=== PATIENT | male | born 2005 | race Hispanic/Latino ===

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

== ENCOUNTER 2025-05-28 19:46 | Emergency (ER) | payer BC ==
[2025-05-28] MEDS ORDERED: FENTANYL CITR 100 MCG/2 ML ONE (20:33)
[2025-05-28] MEDS ORDERED: ONDANSETRON 4 MG/2 ML VIAL ONE (20:34)
[2025-05-28] MEDS ORDERED: LIDOCAINE 2% W/EPI 1:200,000 MPF 20 ML VIAL IM ONE (20:35)
[2025-05-28] MEDS ORDERED: CLINDAMYCIN 600MG/D5W 50 ML IV ONE (20:35)
[2025-05-28 20:41] LABS: Absolute Lymphocytes (CBC) 2.5 K/uL (0.7-4.9); Hematocrit 40.7 % (39.6-49.0); Hemoglobin 14.3 g/dL (13.6-17.9); MCH 31.5 pg (27.0-35.0); MCHC 35.2 g/dL (32.0-36.0); MCV 89.4 fL (80-100); MPV 7.5 fL (7.6-11.3); Nucleated RBC Absolute Count 0.0 (0-0); Nucleated Red Blood Cells % 0.0 % (0-0); RBC Red Blood Cell Count 4.55 M/uL (4.33-5.43); White Blood Count 10.50 thou/uL (4.3-10.9)
[2025-05-28 20:53] LABS: Anion Gap 8.2 mEq/L (5.0-15.0); BUN Blood Urea Nitrogen 20.0 mg/dL (7-18); Glucose Level 96.0 mg/dL (74-106); Potassium 4.2 mEq/L (3.5-5.1)
--- NOTE | 2025-05-28 21:59 | EDPHYS ---
Physician Documentation [facility] Name: Emery Foreman Age: 19 yrs Sex: Male : 2005 Arrival Date: 05/28/2025 Time: 19:46 Bed 16 Private MD: ED Physician Nicho Martines HPI: 05/28 20:25 This 19 yrs old Male presents to ER via Ambulatory with complaints of Abscess. cp 20:25 The patient presents with an abscess of the right buttock. Description: fluctuant, cp raised, swollen. 20:25 Onset: The symptoms/episode began/occurred 2 week(s) ago. cp 20:25 Associated signs and symptoms: Pertinent negatives: discharge, drainage, fever. cp Severity of symptoms: in the emergency department the symptoms are unchanged, despite home interventions. Historical: - Allergies: 20:06 No Known Allergies; bm8 - Home Meds: 20:06 None [Active]; bm8 - PMHx: 20:06 None; bm8 - PSHx: 20:06 None; bm8 - Immunization history:: Adult Immunizations up to date. - Infectious Disease History:: Denies. - Social history:: Smoking status: Patient denies any tobacco usage or history of. ROS: 20:30 Constitutional: Negative for body aches, chills, fever, poor PO intake, cp 20:30 Abdomen/GI: Negative for abdominal pain, vomiting, diarrhea, constipation, cp 20:30 Skin: Positive for abscess, of the right buttock, 20:30 All other systems are negative, Exam: 20:30 Head/Face: Normocephalic, atraumatic. cp 20:30 Constitutional: The patient appears in no acute distress, alert, awake, non-toxic, well developed, well nourished, uncomfortable, 20:30 Cardiovascular: Rate: normal, 20:30 Respiratory: the patient does not display signs of respiratory distress, Respirations: normal, no use of accessory muscles, no retractions, labored breathing, is not present, Breath sounds: are clear throughout, no decreased breath sounds, 20:30 Abdomen/GI: Inspection: abdomen appears normal, Palpation: abdomen is soft and non-tender, in all quadrants, 20:30 Skin: abscess, of the right buttock, approximate size golf ball, tender and fluctuant, mild surrounding erythema, Vital Signs: 20:04 BP 120 / 80; Pulse 81; Resp 17; Temp 98.7; Pulse Ox 100% ; Weight 58.97 kg; Height 5 bm8 ft. 9 in. ; Pain 5/10; 20:23 BP 121 / 70; Pulse 87; Resp 16; Pulse Ox 99% ; kt5 21:24 BP 121 / 70; Pulse 84; Resp 18; Pulse Ox 98% ; kt5 22:54 BP 118 / 68; Pulse 82; Resp 18; Temp 98.3; Pulse Ox 99% ; Pain 0/10; kt5 20:04 Body Mass Index 19.20 (58.97 kg, 175.26 cm) bm8 20:04 Pain Scale: Adult bm8 22:54 Pain Scale: Adult kt5 Procedures: 21:55 I \T\ D: Incision and drainage was performed for an abscess of the right buttock Prepped cp with Betadine, Anesthetized with ml's 2% Lidocaine with epinephrine. 6 ml's 2% Lidocaine with epinephrine. Incised with #11 blade. Drained moderate amount purulent fluid. bloody fluid. Packed with iodoform gauze, Dressing: sterile 4x4 gauze, the patient tolerated the procedure well. MDM: 20:05 Medical Screening Exam initiated cp 21:58 Data reviewed: vital signs, nurses notes, lab test result(s), and as a result, I will cp discharge patient. 21:58 Differential diagnosis: abscess, cellulitis, sepsis. I considered the following cp discharge prescriptions or medication management in the emergency department Medications were administered in the Emergency Department. See MAR. Test considered but Not performed: CT: abdomen/pelvis. Counseling: I had a detailed discussion with the patient and/or guardian regarding the historical points, exam findings, and any diagnostic results supporting the discharge/admit diagnosis, lab results, the need for outpatient follow up, a family practitioner, to return to the emergency department if symptoms worsen or persist or if there are any questions or concerns that arise at home. Response to treatment: the patient's symptoms have mildly improved after treatment, and as a result, I will discharge patient. Special discussion: wound care. 05/28 20: Order name: CBC with Diff; Complete Time: 21:30 cp 05/28 20: Order name: BMP; Complete Time: 21:30 cp 05/28 20:21 Order name: I\T\D Setup; Complete Time: 21:03 cp 05/28 20:21 Order name: IV Saline Lock; Complete Time: 20:31 cp 05/28 20:21 Order name: Labs collected and sent; Complete Time: 20:31 cp 05/28 21:50 Order name: Wound dressing; Complete Time: 22:35 cp Administered Medications: 20:41 Drug: Ondansetron IVP 4 mg IVP once; over 2 minutes Route: IVP; Site: right antecubital;kt5 21:02 Follow up: Response: No adverse reaction; Nausea is decreased kt5 20:43 Drug: fentaNYL (PF) IVP 25 mcg IVP once Route: IVP; Site: right antecubital; kt5 21:03 Follow up: Response: No adverse reaction; Pain is decreased kt5 20:45 Drug: Clindamycin IVPB 600 mg IVPB once over 30 mins; (mix in 50 mL) Route: IVPB; kt5 Infused Over: 30 mins; Site: left antecubital; 21:36 Follow up: IV Status: Completed infusion; IV Intake: 50ml kt5 21:36 Follow up: Response: No adverse reaction kt5 22:53 Drug: Trimethoprim-Sulfamethoxazole PO (160 mg-800 mg (DS) 1 tablet PO once Route: PO; kt5 22:58 Follow up: Response: No adverse reaction kt5 22:53 Drug: Hydrocodone-Acetaminophen PO (7.5 mg-325 mg) 1 tabs PO once; RASS on ADMIN: kt5 Combtv4, Very Agttd3, Agttd2, Rstlss1, AlertClm0, Drwsy-1, Lt Sdtn-2, Mod Sdtn-3, Dp Sdtn-4, UnArsble-5 Route: PO; 22:58 Follow up: Response: No adverse reaction kt5 23:00 Drug: Lidocaine Infiltration (2 %) 20 ml 5 ml Infiltration once; with epinephrine kt5 Volume: 5 ml; Route: Infiltration; Disposition: 05/29 02:18 Co-signature as Attending Physician, Nicho Martines DO I reviewed the patient's care tt7 provided by the Advanced Practice Provider and agree with the diagnosis and treatment plan. 22:59 Chart complete. cp Disposition Summary: 05/28/25 21:58 Discharge Ordered Notes: Location: Home cp Problem: new cp Symptoms: have improved cp Condition: Stable cp Diagnosis - Cutaneous abscess of buttock - right cp Followup: cp - With: Emergency Department - When: 2 - 3 days - Reason: Wound Recheck Discharge Instructions: - Discharge Summary Sheet cp - Skin Abscess cp - Incision and Drainage cp - Incision and Drainage, Care After cp Forms: - Medication Reconciliation Form cp - Antibiotic Education cp - Prescription Opioid Use cp - Patient Portal Instructions cp - Leadership Thank You Letter cp Prescriptions: - Clindamycin HCl 300 mg Oral Capsule - take 1 capsule ORAL route every 6 hours for 10 days; 40 capsule; Refills: 0, cp Product Selection Permitted - Ultram 50 mg Oral Tablet - take 1 tablet ORAL route every 6 hours As needed; 12 tablet; Refills: 0, cp Product Selection Permitted - Bactrim DS 800-160 mg Oral Tablet - take 1 tablet ORAL route every 12 hours for 10 days; 20 tablet; Refills: 0, cp Product Selection Permitted Signatures: Dispatcher [employer] EDMS Ash Boo PA-C PA-C cp McDonald, Brad RN RN bm8 Anaid Corado RN RN kt5 Nicho Martines DO DO tt7 Corrections: (The following items were deleted from the chart) 05/28 22:03 21:45 I \T\ D: Incision and drainage was performed for an abscess of the right buttock cp Prepped with Betadine, Anesthetized with ml's 2% Lidocaine with epinephrine. 6 ml's 2% Lidocaine with epinephrine. Incised with #11 blade. Drained moderate amount purulent fluid. bloody fluid. Packed with iodoform gauze, Dressing: sterile 4x4 gauze, the patient tolerated the procedure well, cp
--- NOTE | 2025-05-28 21:59 | ER ---
Nurse's Notes [facility] Name: Emery Foreman Age: 19 yrs Sex: Male : 2005 Arrival Date: 05/28/2025 Time: 19:46 Bed 16 Private MD: Diagnosis: Cutaneous abscess of buttock-right Presentation: 05/28 20:04 Chief complaint: Patient states: I have an abscess on my right butt cheeck that is bm8 getting worse for two weeks. Coronavirus screen: At this time, the client does not indicate any symptoms associated with coronavirus-19. Ebola Screen: Patient negative for fever greater than or equal to 101.5 degrees Fahrenheit, and additional compatible Ebola Virus Disease symptoms Patient denies exposure to infectious person. Patient denies travel to an Ebola-affected area in the 21 days before illness onset. No symptoms or risks identified at this time. Initial Sepsis Screen: Does the patient meet any 2 criteria? No. Patient's initial sepsis screen is negative. Does the patient have a suspected source of infection? No. Patient's initial sepsis screen is negative. Risk Assessment: Do you want to hurt yourself or someone else? Patient reports no desire to harm self or others. Onset of symptoms was May 14, 2025. 20:04 Method Of Arrival: Ambulatory bm8 20:04 Acuity: JESSY 3 bm8 Triage Assessment: 20:06 General: Appears in no apparent distress. comfortable, Behavior is calm, cooperative, bm8 appropriate for age. Pain: Complains of pain in gluteal cleft Pain currently is 5 out of 10 on a pain scale. Derm: Abscess located on gluteal cleft Reports pain that is 5 out of 10 on a pain scale. Historical: - Allergies: 20:06 No Known Allergies; bm8 - Home Meds: 20:06 None [Active]; bm8 - PMHx: 20:06 None; bm8 - PSHx: 20:06 None; bm8 - Immunization history:: Adult Immunizations up to date. - Infectious Disease History:: Denies. - Social history:: Smoking status: Patient denies any tobacco usage or history of. Screenin:23 [facility] ED Fall Risk Assessment (Adult) History of falling in the last 3 months, kt5 including since admission No falls in past 3 months (0 pts) Confusion or Disorientation No (0 pts) Intoxicated or Sedated No (0 pts) Impaired Gait No (0 pts) Mobility Assist Device Used No (0 pt) Altered Elimination No (0 pt) Score/Fall Risk Level 0 - 2 = Low Risk. Abuse screen: Denies threats or abuse. Nutritional screening: No deficits noted. Tuberculosis screening: No symptoms or risk factors identified. Assessment: 20:23 General: Appears in no apparent distress. comfortable, Behavior is calm, cooperative, kt5 appropriate for age. Pain: Complains of pain in right gluteus crystal Pain does not radiate. Pain currently is 0 out of 10 on a pain scale. at worst was 8 out of 10 on a pain scale. Quality of pain is described as sharp, Pain began 2 weeks Is intermittent, Aggravated by increased activity, repositioning, weight bearing. Neuro: No deficits noted. Barton Agitation-Sedation Scale (RASS): 0 - Alert and Calm Level of Consciousness is awake, alert, obeys commands, Oriented to person, place, time, situation, Appropriate for age. Cardiovascular: No deficits noted. Heart tones S1 S2 present Capillary refill < 3 seconds is brisk Clubbing of nail beds is absent JVD is absent Rhythm is regular. Respiratory: No deficits noted. Airway is patent Trachea midline Respiratory effort is even, unlabored, Respiratory pattern is regular, symmetrical, Breath sounds are clear bilaterally. GI: No deficits noted. No signs and/or symptoms were reported involving the gastrointestinal system. : No deficits noted. No signs and/or symptoms were reported regarding the genitourinary system. EENT: No deficits noted. No signs and/or symptoms were reported regarding the EENT system. Derm: Abscess located on right gluteus crystal is half dollar sized, has no drainage, is red, is raised, Reports increased pain that is 8 out of 10 on a pain scale. Musculoskeletal: No deficits noted. No signs and/or symptoms reported regarding the musculoskeletal system. 21:24 Reassessment: Patient appears in no apparent distress at this time. Patient and/or kt5 family updated on plan of care and expected duration. Pain level reassessed. Patient is alert, oriented x 3, equal unlabored respirations, skin warm/dry/pink. Patient states feeling better. Patient states symptoms have improved. 22:54 Reassessment: Patient appears in no apparent distress at this time. Patient and/or kt5 family updated on plan of care and expected duration. Pain level reassessed. Patient is alert, oriented x 3, equal unlabored respirations, skin warm/dry/pink. Patient denies pain at this time. Patient states feeling better. Patient states symptoms have improved. Vital Signs: 20:04 BP 120 / 80; Pulse 81; Resp 17; Temp 98.7; Pulse Ox 100% ; Weight 58.97 kg; Height 5 bm8 ft. 9 in. ; Pain 5/10; 20:23 BP 121 / 70; Pulse 87; Resp 16; Pulse Ox 99% ; kt5 21:24 BP 121 / 70; Pulse 84; Resp 18; Pulse Ox 98% ; kt5 22:54 BP 118 / 68; Pulse 82; Resp 18; Temp 98.3; Pulse Ox 99% ; Pain 0/10; kt5 20:04 Body Mass Index 19.20 (58.97 kg, 175.26 cm) bm8 20:04 Pain Scale: Adult bm8 22:54 Pain Scale: Adult kt5 ED Course: 19:50 Patient arrived in ED. gm2 19:53 Ash Boo PA-C is PHCP. cp 19:53 Nicho Martines DO is Attending Physician. cp 20:05 Triage completed. bm8 20:06 Arm band placed on left wrist. bm8 20:09 Anaid Corado, RN is Primary Nurse. kt5 20:23 Patient has correct armband on for positive identification. Call light in reach. Side kt5 rails up X 1. Adult w/ patient. Client placed on continuous cardiac and pulse oximetry monitoring. NIBP monitoring applied. Door closed. Noise minimized. Warm blanket given. Pillow given. 20:23 Inserted saline lock: 20 gauge in left antecubital area, using aseptic technique. Blood kt5 collected. Flushed with 10 mL NS. 20:30 BMP Sent. kt5 20:31 CBC with Diff Sent. kt5 22:54 Provided Education on: follow up and meds. kt5 22:54 Assist provider with I \T\ D: of an abscess on right right buttocks Set up I\T\D tray. kt 5 Performed by Ash Boo PA-C Dressing with 4X4s, tape Patient tolerated well. 22:56 IV discontinued, intact, bleeding controlled, No redness/swelling at site. Pressure kt5 dressing applied. Administered Medications: 20:41 Drug: Ondansetron IVP 4 mg IVP once; over 2 minutes Route: IVP; Site: right antecubital;kt5 21:02 Follow up: Response: No adverse reaction; Nausea is decreased kt5 20:43 Drug: fentaNYL (PF) IVP 25 mcg IVP once Route: IVP; Site: right antecubital; kt5 21:03 Follow up: Response: No adverse reaction; Pain is decreased kt5 20:45 Drug: Clindamycin IVPB 600 mg IVPB once over 30 mins; (mix in 50 mL) Route: IVPB; kt5 Infused Over: 30 mins; Site: left antecubital; 21:36 Follow up: IV Status: Completed infusion; IV Intake: 50ml kt5 21:36 Follow up: Response: No adverse reaction kt5 22:53 Drug: Trimethoprim-Sulfamethoxazole PO (160 mg-800 mg (DS) 1 tablet PO once Route: PO; kt5 22:58 Follow up: Response: No adverse reaction kt5 22:53 Drug: Hydrocodone-Acetaminophen PO (7.5 mg-325 mg) 1 tabs PO once; RASS on ADMIN: kt5 Combtv4, Very Agttd3, Agttd2, Rstlss1, AlertClm0, Drwsy-1, Lt Sdtn-2, Mod Sdtn-3, Dp Sdtn-4, UnArsble-5 Route: PO; 22:58 Follow up: Response: No adverse reaction kt5 23:00 Drug: Lidocaine Infiltration (2 %) 20 ml 5 ml Infiltration once; with epinephrine kt5 Volume: 5 ml; Route: Infiltration; Medication: 20:23 VIS not applicable for this client. kt5 Intake: 21:36 IV: 50ml; Total: 50ml. kt5 Outcome: 21:58 Discharge ordered by . chela 22:56 Discharged to home ambulatory, with family, kt5 22:56 Condition: improved 22:56 Discharge instructions given to patient, family, Instructed on discharge instructions, follow up and referral plans. Demonstrated understanding of instructions, follow-up care, medications, Prescriptions given X 3, 23:00 Patient left the ED. kt5 Signatures: Ash Boo PA-C PA-C cp Mitchell, Ginger 2 Brandon Astorga RN RN bm8 Anaid Corado RN RN kt5 Corrections: (The following items were deleted from the chart) 23:00 22:56 Patient did not have IV access during this emergency room visit. IV discontinued, kt5 intact, bleeding controlled, No redness/swelling at site. Pressure dressing applied, kt5
[2025-05-28] MEDS ORDERED: SMZ./TMP. 800/160 MG TABLET ONE (22:41)
[2025-05-28] MEDS ORDERED: HYDROCODONE/APAP 7.5/325 MG TAB ONE (22:42)
[2025-05-29 00:24] VITALS: BP 118/68; TEMP 98.3; O2SAT 99
== END 2025-05-28 23:00 | disposition home or self-care (01) ==
LOC: ER 19:46
PROC: 0H98XZZ Drainage of Buttock Skin, External Approach (ICD-10-PCS; principal; 2025-05-28)
DX: L02.31 Cutaneous abscess of buttock (principal)
CPT/HCPCS: 96365; 85025; 80048; 36415; 96375; 99285; 10060; J3010; J2405

== ENCOUNTER 2025-05-31 12:46 | Emergency (ER) | payer BC ==
--- NOTE | 2025-05-31 14:07 | EDPHYS ---
Physician Documentation [facility] Name: Emery Foreman Age: 19 yrs Sex: Male : 2005 Arrival Date: 05/31/2025 Time: 12:46 Bed 12 Private MD: ED Physician Neeraj Samuels HPI: 05/31 16:09 This 19 yrs old Male presents to ER via Ambulatory with complaints of Wound dr5 Check. 16:09 Patient presents to ED for recheck of: abscess. The affected area is on the right dr5 gluteal cleft. Patient is a 19-year-old male with no past medical history coming in for wound check and packing removal of abscess that was drained 2 days ago. Patient denies fever, discharge from wound, or worsening symptoms. Patient also reports taking medication as prescribed.. Historical: - Allergies: 13:05 No Known Allergies; ss - PMHx: 13:05 None; ss - PSHx: 13:05 None; ss - Infectious Disease History:: Denies. - Social history:: Smoking status: Patient denies any tobacco usage or history of. ROS: 16:09 Constitutional: as per hpi dr5 Exam: 16:09 Constitutional: This is a well developed, well nourished patient who is awake, alert, dr5 and in no acute distress. Head/Face: Normocephalic, atraumatic. Eyes: Pupils equal round and reactive to light, extra-ocular motions intact. Lids and lashes normal. Conjunctiva and sclera are non-icteric and not injected. Cornea within normal limits. Periorbital areas with no swelling, redness, or edema. Neck: Trachea midline, no thyromegaly or masses palpated, and no cervical lymphadenopathy. Supple, full range of motion without nuchal rigidity, or vertebral point tenderness. No Meningismus. Chest/axilla: Normal chest wall appearance and motion. Nontender with no deformity. No lesions are appreciated. Cardiovascular: Regular rate and rhythm with a normal S1 and S2. Normal PMI, no JVD. No pulse deficits. Respiratory: Lungs have equal breath sounds bilaterally, clear to auscultation. No rales, rhonchi or wheezes noted. No increased work of breathing, no retractions or nasal flaring. Back: No spinal tenderness. No costovertebral tenderness. Full range of motion. Skin: Warm, dry with normal turgor. Normal color with no rashes, no lesions, and no evidence of cellulitis. Abscess healing well without erythema or tenderness to palpation. MS/ Extremity: Pulses equal, no cyanosis. Neurovascular intact. Full, normal range of motion. Neuro: Awake and alert, GCS 15, oriented to person, place, time, and situation. Cranial nerves II-XII grossly intact. Motor strength 5/5 in all extremities. Sensory grossly intact. Cerebellar exam normal. Normal gait. 16:09 : Rectal exam: AISHA NETTLES . dr5 Vital Signs: 13:04 BP 116 / 64; Pulse 70; Resp 16; Temp 98.3(TE); Pulse Ox 98% ; Weight 58.97 kg; Height 5 ss ft. 9 in. ; Pain 0/10; 13:04 Body Mass Index 19.20 (58.97 kg, 175.26 cm) ss 13:04 Pain Scale: Adult ss Procedures: 16:09 I \T\ D:. I \T\ D: Packed with. Performed Incision and drainage packing removal. Removed dr 5 packing. MDM: 12:49 Medical Screening Exam initiated dr5 16:09 Differential diagnosis: cellulitis, Abscess reformation, sepsis, cellulitis, wound dr5 recheck. Data reviewed: vital signs, nurses notes. Consideration of Admission/Observation Escalation of care including admission/observation considered. Escalation considered but patient's wound was not healing. Historians other than the Patient: Spouse/Significant Other: Significant other. Care significantly affected by the following Social Determinants of Health: Poor access to healthcare and/or lack of insurance, Poor access to transportation, Problems related to employment. Counseling: I had a detailed discussion with the patient and/or guardian regarding the historical points, exam findings, and any diagnostic results supporting the discharge/admit diagnosis, the presence of at least one elevated blood pressure reading (>120/80) during this emergency department visit, the need for outpatient follow up, for definitive care, a family practitioner, to return to the emergency department if symptoms worsen or persist or if there are any questions or concerns that arise at home. Special discussion: I discussed with the patient/guardian in detail that at this point there is no indication for admission to the hospital. It is understood, however, that if the symptoms persist or worsen the patient needs to return immediately for re-evaluation. Based on the history and exam findings, there is no indication for further emergent testing or inpatient evaluation. I discussed with the patient/guardian the need to see the primary care provider for further evaluation of the symptoms. ED course: Iodoform packing was removed from wound. No tenderness to palpation. Erythema has improved. Abscess is healing well. No signs of infection. Recommended continuing antibiotics. Strict ER precautions given all question answered. Administered Medications: No medications were administered Disposition: 17:53 Co-signature as Attending Physician, Neeraj Samuels MD I reviewed the patient's care rn provided by the Advanced Practice Provider and agree with the diagnosis and treatment plan. Disposition Summary: 05/31/25 14:07 Discharge Ordered Notes: Location: Home dr5 Condition: Stable dr5 Diagnosis - Encounter for change or removal of nonsurgical wound dressing dr5 Followup: dr5 - With: Emergency Department - When: As needed - Reason: Worsening of condition Followup: dr5 - With: Private Physician - When: 1 - 2 days - Reason: Recheck today's complaints, Continuance of care, Re-evaluation by your physician Discharge Instructions: - Discharge Summary Sheet dr5 - How to Change Your Wound Dressing dr5 Forms: - Medication Reconciliation Form dr5 - Patient Portal Instructions dr5 - Leadership Thank You Letter dr5 Signatures: Neeraj Samuels MD MD rn Blanchard, Shelby, RN RN ss Rhodes, Dustin, MATTHEW-C OIL EXPLORATION ENGINEER-Cdr5
--- NOTE | 2025-05-31 14:07 | ER ---
Nurse's Notes [facility] Name: Emery Foreman Age: 19 yrs Sex: Male : 2005 Arrival Date: 05/31/2025 Time: 12:46 Bed 12 Private MD: Diagnosis: Encounter for change or removal of nonsurgical wound dressing Presentation: 05/31 13:04 Chief complaint: Patient states: "I as here night for an abscess on my R butt ss cheek and they drained it and packed it, and told me to come back today to have the packing removed.". Coronavirus screen: Client denies travel out of the [place] in the last 14 days. Ebola Screen: Patient denies exposure to infectious person. Patient denies travel to an Ebola-affected area in the 21 days before illness onset. Initial Sepsis Screen: Does the patient meet any 2 criteria? No. Patient's initial sepsis screen is negative. Does the patient have a suspected source of infection? No. Patient's initial sepsis screen is negative. Risk Assessment: Do you want to hurt yourself or someone else? Patient reports no desire to harm self or others. Onset of symptoms is unknown. 13:04 Method Of Arrival: Ambulatory ss 13:04 Acuity: JESSY 5 ss Historical: - Allergies: 13:05 No Known Allergies; ss - PMHx: 13:05 None; ss - PSHx: 13:05 None; ss - Infectious Disease History:: Denies. - Social history:: Smoking status: Patient denies any tobacco usage or history of. Screenin:06 [facility] ED Fall Risk Assessment (Adult) History of falling in the last 3 months, ph including since admission No falls in past 3 months (0 pts) Confusion or Disorientation No (0 pts) Intoxicated or Sedated No (0 pts) Impaired Gait No (0 pts) Mobility Assist Device Used No (0 pt) Altered Elimination No (0 pt) Score/Fall Risk Level. Abuse screen: Denies threats or abuse. Denies injuries from another. Nutritional screening: No deficits noted. Tuberculosis screening: No symptoms or risk factors identified. Assessment: 14:13 General: Appears in no apparent distress. comfortable, well groomed, well developed, ss well nourished, Behavior is calm, cooperative. Pain: Denies pain. Neuro: Level of Consciousness is awake, alert, obeys commands. Respiratory: Airway is patent Respiratory effort is even, unlabored, Respiratory pattern is regular, symmetrical. EENT: Nares are clear. Derm: Skin is intact, is healthy with good turgor, Skin is pink, warm \\T\\ dry. normal. Vital Signs: 13:04 BP 116 / 64; Pulse 70; Resp 16; Temp 98.3(TE); Pulse Ox 98% ; Weight 58.97 kg; Height 5 ss ft. 9 in. ; Pain 0/10; 13:04 Body Mass Index 19.20 (58.97 kg, 175.26 cm) ss 13:04 Pain Scale: Adult ss ED Course: 12:48 Patient arrived in ED. im 12:49 Brandon Hunter FNP-C [facility]5 12:49 Neeraj Samuels MD is Attending Physician. dr5 13:05 Triage completed. ss 13:05 Arm band placed on right wrist. ss 14:06 Assisted provider with: chaperoned for wound check on R buttock. ph 14:13 Chana Travis, RN is Primary Nurse. ss 14:13 Patient has correct armband on for positive identification. ss 14:13 Patient did not have IV access during this emergency room visit. ss Administered Medications: No medications were administered Medication: 14:13 VIS not applicable for this client. ss Outcome: 14:07 Discharge ordered by MD. dr5 14:13 Discharged to home ambulatory, ss 14:13 Condition: good 14:13 Discharge instructions given to patient, family, Instructed on discharge instructions, follow up and referral plans. wound care, Demonstrated understanding of instructions, follow-up care, wound care, 14:14 Patient left the ED. ss Signatures: Chana Travis, RN RN Geena Whitlock RN RN Kimberley Massey Brandon Hunter FNP-Yannick MERCHANDISE FLOW TEAM MEMBER-Cdr5
[2025-05-31 14:42] VITALS: BP 116/64; TEMP 98.3; O2SAT 98
== END 2025-05-31 14:14 | disposition home or self-care (01) ==
LOC: ER 12:46
DX: Z48.00 Encounter for change or removal of nonsurgical wound dressing (principal)
CPT/HCPCS: 99282